=== PATIENT | male | born 1985 | race Asian ===

== ENCOUNTER 2016-11-16 20:05 | Emergency (ER) | payer OTHER ==
[2016-11-16] MEDS ORDERED: TDAP ADULT 0.5 ML INJ (BOOSTRIX) IM ONE (21:04)
[2016-11-16 21:16] VITALS: BP 146/90; PULSE 77; RESP 18; TEMP 98.4; O2SAT 97
--- NOTE | 2016-11-16 21:30 | EDPHY ---
H & P Stated Complaint: l hand lac Time Seen by Provider: 11/16/16 20:47 HPI/ROS: CHIEF COMPLAINT: Left index finger laceration HISTORY OF PRESENT ILLNESS: The patient presents to the ED with a laceration to his left index finger. The patient denies associated numbness or weakness. The patient denies additional injury. The patient's tetanus shot is not up-to- date. REVIEW OF SYSTEMS: Neuro: no headache, numbness, weakness Musculoskeletal: as above Skin: As above Source: Patient Exam Limitations: No limitations - Personal History Current Tetanus/Diphtheria Vaccine: No Current Tetanus Diphtheria and Acellular Pertussis (TDAP): No - Medical/Surgical History Hx Asthma: No Hx Chronic Respiratory Disease: No Hx Diabetes: No Hx Cardiac Disease: No Hx Renal Disease: No Hx Cirrhosis: No Hx Alcoholism: No Hx HIV/AIDS: No Hx Splenectomy or Spleen Trauma: No Other PMH: l shldr dislocation multiple. surgery - Social History Smoking Status: Current some day smoker - Physical Exam Exam: General: No acute distress Left hand: 1.5 cm laceration noted to the dorsum of the left index finger just distal to the MCP, normal extensor mechanism without evidence of tendon deficit Neuro: Sensation intact to light touch Vascular: Normal capillary refill Constitutional: Initial Vital Signs Temperature (C) 36.9 C 11/16/16 21:15 Heart Rate 77 11/16/16 21:15 Respiratory Rate 18 11/16/16 21:15 Blood Pressure 146/90 H 11/16/16 21:15 O2 Sat (%) 97 11/16/16 21:15 O2 Delivery Mode Room Air Allergies/Adverse Reactions: No Known Allergies Allergy (Unverified 11/16/16 21:14) Home Medications: Medication Instructions Recorded NK [No Known Home Meds] 11/16/16 Medical Decision Making Procedures: Procedure: Laceration repair. Verbal consent was obtained from the patient. The 1.5 cm laceration on the left ndex finger was anesthetized using lidocaine with epinephrine. The wound was irrigated per protocol, draped and explored to its base with a gloved finger. There were no deep structures involved. No tendon injury was identified. The wound was repaired with 5-0 nylon sutures. The wound repair was simple. The procedure was performed by myself. ED Course/Re-evaluation: The patient since tetanus shot was updated. His wound was repaired without complication by myself after copious irrigation. The patient will return to the emergency department in 12 days for suture removal. The patient has been given customary aftercare instructions and return precautions. Departure - Departure Disposition: Home, Routine, Self-Care Clinical Impression: Laceration of left index finger Condition: Good Instructions: Care For Your Stitches (ED), Laceration (ED) Additional Instructions: 1. Please return to the emergency department 12 days for suture removal. 2. Apply antibiotic ointment to sutures twice daily for next 5 days. 3. Please try to limit movement of the left index finger while sutures are in to to promote healing. 4. Please return for any increasing pain, redness, swelling, fever or other concerns. Referrals: [facility] [Other] - As per Instructions
== END 2016-11-16 22:00 | disposition home or self-care (01) ==
PROC: 0HQGXZZ Repair Left Hand Skin, External Approach (ICD-10-PCS; principal; 2016-11-16)
DX: S61.211A Laceration without foreign body of left index finger without damage to nail, initial encounter (principal); F17.200 Nicotine dependence, unspecified, uncomplicated; Z23 Encounter for immunization; X58.XXXA Exposure to other specified factors, initial encounter